=== PATIENT | male | born 1950 | race Caucasian/White ===

== ENCOUNTER → 2018-01-20 | Outpatient (CLI) | payer OTHER ==
[~2018-01-20] MED LIST: ABILIFY20 MG PO; ASPIR-LOW81 MG PO; ATORVASTATIN CA40 MG PO; CIPROFLOXACIN500 M1 PO; DEPAKOTE ER500 MG PO; FLOMAX0.4 MG PO; LISINOPRIL5 MG PO; LOPRESSOR25 PO; PEPCID20 MG PO; TRAMADOL 50 MG50 MG PO; ZOFRAN ODT4 MG PO
== END ==
LOC: NUC 07:18
DX: I25.10 Atherosclerotic heart disease of native coronary artery without angina pectoris (principal); I10 Essential (primary) hypertension; I21.9 Acute myocardial infarction, unspecified

== ENCOUNTER → 2019-02-09 | Outpatient (CLI) | payer OTHER ==
--- NOTE | 2019-02-09 10:37 | 2DMMODE ---
[facility] [place] [address] 2 D/M-MODE ECHOCARDIOGRAM Name: SIERRA CAMPOS Room #: REG [facility]#: [id number] ������������� Admission: 02/09/19 ������������� Attend Phys: Mark Magaña MD Discharge: ��� ������������� ��� Date of : 46 Date of Service: 02/09/19 [facility] �� Report #: [id number] �������� ��������������������������������������������[id number] THIS REPORT FOR: //name// APPROVED REPORT Study performed: 02/09/2019 09:13:39 EXAM: Comprehensive 2D, Doppler, and color-flow Echocardiogram Patient Location: Out-Patient Status: routine BSA: 1.73 HR: 60 bpm Rhythm: NSR Other Information Study Quality: Adequate Indications CAD Hx: SC, stent, HTN, HLP. 2D Dimensions RVDd: 40.25 mm IVSd: 8.10 (7-11mm) LVOT Diam: 20.02 (18-24mm) LVDd: 48.12 mm PWd: 8.25 (7-11mm) Ascending Ao: 31.71 (22-36mm) LVDs: 30.29 (25-40mm) Aortic Root: 32.12 mm Volumes Left Atrial Volume (Systole) Single Plane 4CH: 46.57 mL Single Plane 2CH: 51.12 mL LA ESV Index: 31.00 mL/m2 Aortic Valve AoV Peak Hank.: 1.57 m/s AO Peak Gr.: 9.87 mmHg LVOT Max P.31 mmHg LVOT Max V: 1.26 m/s YASIR Vmax: 2.52 cm2 Mitral Valve E/A Ratio: 1.4 MV Decel. Time: 245.80 ms [facility] [address] [place] [address] 2 D/M-MODE ECHOCARDIOGRAM Name: SIERRA CAMPOS Room #: REG [facility]#: [id number] ������������� Admission: 02/09/19 ������������� Attend Phys: Mark Magaña MD Discharge: ��� ������������� ��� Date of : 46 Date of Service: 02/09/19 1037 �� Report #: [id number] �������� ��������������������������������������������[id number] MV E Max Hank.: 1.04 m/s MV A Hank.: 0.77 m/s MV PHT: 71.28 ms IVRT: 106.11 ms Pulmonary Valve PV Peak Hank.: 0.81 m/s PV Peak Gr.: 2.62 mmHg Pulmonary Vein P Vein S: 0.52 m/s P Vein A: 0.27 m/s P Vein D: 0.38 m/s P Vein A Dur.: 115.3 msec P Vein S/D Ratio: 1.37 Tricuspid Valve TR Peak Hank.: 2.43 m/s RAP Estimate: 5.00 mmHg TR Peak Gr.: 23.71 mmHg PA Pressure: 29.00 mmHg Left Ventricle The left ventricle is normal size. There is normal LV segmental wall motion. There is normal left ventricular wall thickness. The left ventricular systolic function is normal. LVEF is 55-60%. Right Ventricle The right ventricle is normal size. The right ventricular systolic function is normal. Atria The left atrium size is normal. The right atrium size is normal. Aortic Valve Aortic valve is trileaflet, mildly calcified. No aortic regurgitation is present. There is no aortic valvular stenosis. Mitral Valve The mitral valve is normal in structure. Mild to moderate mitral regurgitation. Tricuspid Valve The tricuspid valve is normal in structure. Mild tricuspid regurgitation. Estimated PAP is 30mmHg. Pulmonic Valve The pulmonary valve is normal in structure. Trace pulmonic regurgitation. [facility] [address] [place] [address] 2 D/M-MODE ECHOCARDIOGRAM Name: SIERRA CAMPOS [facility] [id number] ������������� Admission: 02/09/19 ������������� Attend Phys: Mark Magaña MD Discharge: ��� ������������� ��� Date of : 46 Date of Service: 02/09/19 1037 �� Report #: [id number] �������� ��������������������������������������������[id number] [employer] The aortic root is normal in size. The ascending aorta is normal in size. IVC is normal in size and collapses >50% with inspiration. Pericardium There is no pericardial effusion. <Conclusion> The left ventricle is normal size. There is normal left ventricular wall thickness. The left ventricular systolic function is normal. The right ventricle is normal size. The left atrium size is normal. Aortic valve is trileaflet, mildly calcified. Mild to moderate mitral regurgitation. Mild tricuspid regurgitation. Estimated PAP is 30mmHg. ��������������������������������������������� <ELECTRONICALLY SIGNED> ���������������������������������������� By: Mark Magaña MD ��������������������������������������������� 02/09/19 1037 1037 1037 Mark Magaña MD /INF
== END ==
LOC: CV 09:01
DX: I08.3 Combined rheumatic disorders of mitral, aortic and tricuspid valves (principal); I25.10 Atherosclerotic heart disease of native coronary artery without angina pectoris; I10 Essential (primary) hypertension; E78.5 Hyperlipidemia, unspecified; I25.2 Old myocardial infarction

== ENCOUNTER 2019-02-16 11:52 | Emergency (ER) | payer OTHER ==
[~2019-02-16] VITALS: Ht 167.6 cm; Wt 65.8 kg
[2019-02-16] MEDS ORDERED: AUGMENTIN 875-1 EACH PO (14:29)
[2019-02-16 15:54] VITALS: BP 144/84
== END 2019-02-16 15:20 | disposition home or self-care (01) ==
LOC: ER 11:52
DX: S01.81XA Laceration without foreign body of other part of head, initial encounter (principal); W54.0XXA Bitten by dog, initial encounter; Y93.89 Activity, other specified; Y92.89 Other specified places as the place of occurrence of the external cause; Y99.8 Other external cause status

== ENCOUNTER → 2020-04-13 | Outpatient (CLI) | payer OTHER ==
[~2020-04-13] MED LIST changes: +AUGMENTIN 875-1 EACH PO
== END ==
LOC: SJCVCIMAG 07:37
PROVIDERS: ATTEND Internal Medicine Cardiovascular Disease
DX: I25.812 Atherosclerosis of bypass graft of coronary artery of transplanted heart without angina pectoris (principal); I10 Essential (primary) hypertension; E78.2 Mixed hyperlipidemia; E78.5 Hyperlipidemia, unspecified; I25.10 Atherosclerotic heart disease of native coronary artery without angina pectoris; I25.2 Old myocardial infarction

== ENCOUNTER → 2020-11-15 | Outpatient (CLI) | payer OTHER | LOC: SJCVC 14:38 | PROVIDERS: ATTEND Internal Medicine Cardiovascular Disease | DX: R94.31 Abnormal electrocardiogram [ECG] [EKG] (principal); I25.812 Atherosclerosis of bypass graft of coronary artery of transplanted heart without angina pectoris; E78.00 Pure hypercholesterolemia, unspecified; I10 Essential (primary) hypertension; R60.9 Edema, unspecified; Z95.5 Presence of coronary angioplasty implant and graft ==

== ENCOUNTER 2020-12-02 08:07 | Inpatient (IN) | payer OTHER ==
[~2020-12-02] VITALS: Ht 162.6 cm; Wt 63.0 kg
[2020-12-02 08:17] VITALS: BP 114/71
--- NOTE | 2020-12-02 08:51 | EKG ---
[address] [place] [address] ELECTROCARDIOGRAM REPORT Name: SIERRA CAMPOS Room #: PRE [facility]..#: [id number] Admission: Attend Phys: Discharge: Date of : 46 Report #: [id number] [facility] ED Test Date: 2020-12-02 Test Time: 08:44:01 Pat Name: SIERRA CAMPOS Department: Room: Gender: M [employer]: kf : 1950 Requested By: Oli Johnson Order Number: [id number] MD: Floyd Connelly Measurements Intervals [place] Rate: 64 P: 69 [place]: 134 QRS: 65 QRSD: 86 T: 39 QT: 416 QTc: 430 Interpretive Statements Sinus rhythm Minimal ST depression, inferior leads Compared to ECG 02/14/2015 11:29:55 ST (T wave) deviation now present Sinus bradycardia no longer present Electronically Signed On 12-02-2020 8:51:16 [employer] by Floyd Connelly [email or web address] <ELECTRONICALLY SIGNED> By: Floyd Connelly MD, [facility] 12/02/20 0851 0844 0844 Floyd Connelly MD, FACC /EPI
[2020-12-02 09:23] LABS: BASOPHILS 0.1 % (0.0-2.0); EOSINOPHILS 1.2 % (0.0-3.0); HEMATOCRIT 27.3 % (42.0-52.0); HEMOGLOBIN 8.5 gm/dL (14.0-18.0); LYMPHOCYTES 6.7 % (24.0-44.0); MCH 27.3 pg (26.0-34.0); MCHC 31.2 g/dL (28.0-37.0); MCV 87.3 fL (80.0-100.0); MONOCYTES 19.2 % (1.0-8.0); PLATELET COUNT 154 thou/uL (150-400); POLYS 72.8 % (36.0-66.0); RBC 3.13 mil/uL (4.50-6.00); RDW 14.5 % (10.5-14.5); WBC 9.6 thou/uL (4.0-11.0)
[2020-12-02 09:29] LABS: ANION GAP 6 mmol/L (7-16); BUN 11 mg/dL (7-18); CALCIUM 8.6 mg/dL (8.5-10.1); CHLORIDE 105 mmol/L (98-107); CO2 26 mmol/L (21-32); CREATININE 0.9 mg/dL (0.7-1.3); GLUCOSE 87 mg/dL (74-106); POTASSIUM 3.9 mmol/L (3.5-5.1); SODIUM 137 mmol/L (136-145)
[2020-12-02 09:39] LABS: ALBUMIN 2.1 g/dL (3.4-5.0); MAGNESIUM 2.1 mg/dL (1.8-2.4); SGOT 20 U/L (15-37); SGPT 10 U/L (30-65); TOTAL BILIRUBIN 0.1 mg/dL (0.2-1.0); TOTAL PROTEIN 5.7 g/dL (6.4-8.2); TROPONIN-I <0.06 ng/mL (<0.06)
[2020-12-02 15:08] VITALS: BP 118/67
[2020-12-02 15:35] VITALS: BP 104/48
[2020-12-02 16:01] VITALS: BP 112/60
--- NOTE | 2020-12-02 16:58 | NUR ---
PATIENT ARRIVED TO AT APPROX 1600. HX AND EDUCATION DOCUMENTED. PATIENT ON CLR LIQUID DIET; FOR COLONOSCOPY TOMMOROW. WILL START DRINKING BOWEL PREP AFTER DINNER. A&OX4 AND DENIES PAIN. RN WILL DO SYSTEMS INITIAL ASSESSMENT. WILL CONTINUE TO MONITOR
[2020-12-02 20:16] VITALS: BP 122/80
--- NOTE | 2020-12-03 03:34 | NUR ---
ASSUMED CARE OF PT AT SHIFT CHANGE. PT IS AOX4 BUT IS SLOW TO RESPOND. PT IS STEADY ON HIS FEET BUT FALL PRECAUTION IN PLACE FOR SAFETY. PT DENIES PAIN, NAUSEA OR SOA. PT WAS ABLE TO COMPLETE BOWEL PREP AND HAD SEVERAL CLEAR BM. ASSESSMENT CHARTED. SKIN TEAR NOTED ON LEFT HIP AND PICTURE WAS TAKEN. PT PLACED NPO AT MIDNIGHT FOR PROCEDURE IN THE AM. PT RAN SR ON TELE. PT HAS TREMORS. PT WAS ABLE TO GET COMFORTABLE AND SLEEP PART OF THE SHIFT. VSS AND NO S/S OF ACUTE DISTRESS. WILL CONTINUE TO MONITOR FOR CHANGES.
[2020-12-03 05:40] LABS: HEMOGLOBIN 7.8 gm/dL (14.0-18.0); MCH 27.9 pg (26.0-34.0); MCHC 32.3 g/dL (28.0-37.0); MCV 86.3 fL (80.0-100.0); RBC 2.78 mil/uL (4.50-6.00); RDW 14.4 % (10.5-14.5); WBC 7.3 thou/uL (4.0-11.0)
[2020-12-03 05:58] VITALS: BP 89/52
[2020-12-03 06:26] VITALS: BP 108/66
[2020-12-03 07:25] VITALS: BP 99/54
[2020-12-03 07:28] VITALS: BP 91/41
--- NOTE | 2020-12-03 12:43 | NUR ---
ASSUMED PT CARE THIS AM. PT HAD A [id number] AND EGD THIS AM. REPORTING SOME WEAKNESS WITH AMBULATION. TREMORS NOTED. PT COOPERATIVE WITH STAFF. PT ON TELE. FALL PRECAUTIONS IN PLACE. ON A CLEAR LIQUID DIET. IV PATENT, FLUIDS INFUSING. CALLS APPROPRIATELY WHEN NEEDED.
[2020-12-03 15:50] VITALS: BP 113/77
[2020-12-03] MEDS ORDERED: ARIPIPRAZOLE10 MG PO ×2 (18:53)
[2020-12-03] MEDS ORDERED: DIVALPROEX SOD500 M1 PO ×2 (18:54)
[2020-12-03 20:29] LABS: URINE BILIRUBIN NEGATIVE (Negative); URINE BLOOD NEGATIVE (Negative); URINE CLARITY CLEAR; URINE COLOR YELLOW; URINE GLUCOSE-RANDOM* NEGATIVE (Negative); URINE KETONES TRACE (Negative); URINE LEUKOCYTES-REFLEX NEGATIVE (Negative); URINE NITRITE-REFLEX NEGATIVE (Negative); URINE PROTEIN (DIPSTICK) NEGATIVE (Negative); URINE UROBILINOGEN 0.2 E.U./dl (0.2-1.0)
[2020-12-03 21:18] VITALS: BP 132/66
[2020-12-04 04:31] LABS: HEMATOCRIT 24.7 % (42.0-52.0); HEMOGLOBIN 7.8 gm/dL (14.0-18.0); MCH 27.3 pg (26.0-34.0); MCHC 31.7 g/dL (28.0-37.0); MCV 86.2 fL (80.0-100.0); RBC 2.86 mil/uL (4.50-6.00); RDW 14.4 % (10.5-14.5); WBC 7.5 thou/uL (4.0-11.0)
--- NOTE | 2020-12-04 06:00 | NUR ---
Pt. rested quietly during the night when checked on during frequent rounds. He offers no c/o pain or discomfort. Bed alarm is on.
[2020-12-04 07:20] VITALS: BP 99/49
[2020-12-04] MEDS ORDERED: CARAFATE1 GM/10 ML PO ×2 (09:47)
[2020-12-04] MEDS ORDERED: PROTONIX40 M4 PO ×2 (09:47)
[2020-12-04 10:17] LABS: % SATURATION 7 % (20-39); IRON 13 ug/dL (65-175); TIBC 197 ug/dL (250-450)
--- NOTE | 2020-12-04 11:12 | NUR ---
ASSUMED PT CARE THIS AM. PT VSS, A&OX4. PT HAS NO COMPLAINTS OF PAIN. ON TELE, DOCUMENTED RHYTHM. AMBULATORY TO THE BATHROOM WITH MINIMAL ASSIST. TOLERATING DIET WELL. TOOK MEDS THIS AM WITHOUT COMPLAINT. IV PATENT, FLUIDS INFUSING. PICTURE TAKEN OF SCRATCH ON LEFT HIP, MEASURING 1 CM BY 3 CM. PT REPORTS SCRATCHING HIS SKIN WHEN HE PULLED HIS PANTS DOWN. CALLS APPROPRIATELY WHEN NEEDED.
[2020-12-04 11:25] VITALS: BP 99/49
--- NOTE | 2020-12-07 16:06 | PATH ---
[facility] [place] [address] PATHOLOGY RPT PROCEDURE Name: SIERRA CAMPOS Room #: 455-P DIS IN M.R.#: [id number] Admission: 12/02/20 Date of : 46 Discharge: 12/04/20 Report #: [id number] Path Case #: [id number] [facility] Accession Number: [id number] . 01 Material submitted: . PART A: esophagus - ESOPHAGEAL ULCER PART B: colon - BX OF POLYP ASCENDING COLON X 2. Modifiers: ascending . 02 Diagnosis: A. Gastroesophageal mucosa, esophageal ulcer, endoscopic biopsy: - Marked acute esophagitis associated with ulceration and granulation tissue. - Gastric fundic-type mucosa with reactive atypia and inflammation. - Negative for dysplasia. . B. Polyp x2, ascending colon, endoscopic biopsy: - Tubular adenoma x1; negative for high-grade dysplasia. - Hyperplastic polyp x1; negative for dysplasia. . (IUV:sisi; 12/06/2020) MBR 12/06/2020 1319 Local . 02 Comment: GMS fungal special stain, along with CMV* and HSV-1* immunohistochemical stains is ordered on block A1 and the results of these will be reported in an addendum to follow. (IUV:supervisor multifocal lens; 12/06/2020) . *This test was developed and its performance characteristics determined by [facility]. It has not been cleared or approved by the U.S. Food and Drug Administration. The FDA has determined that such clearance or approval is not necessary. This test is used for clinical purposes. It should not be regarded as investigational or for research. This laboratory is certified under the Clinical Laboratory Improvement Amendments of 1988 (CLIA) as qualified to perform high complexity clinical laboratory testing. . 02 Addendum: . Addendum is issued subsequent to reviewing properly-controlled stains performed on Block A1 . Special stain GMS - No definite fungal elements identified. . *CMV immunohistochemical stain - No definite CMV inclusion identified. . *HSV1 immunohistochemical stain - No definite herpes inclusions identified. . [address] [address] PATHOLOGY RPT PROCEDURE Name: BETHSIERRA ARANDASS Room #: 455-P DIS IN M.R.#: [id number] Admission: 12/02/20 Date of : 46 Discharge: 12/04/20 Report #: [id number] Path Case #: [id number] The originally rendered diagnosis remains unchanged. (IUV:mike; 12/07/2020) . . . *This test was developed and its performance characteristics determined by [facility]. It has not been cleared or approved by the U.S. Food and Drug Administration. The FDA has determined that such clearance or approval is not necessary. This test is used for clinical purposes. It should not be regarded as investigational or for research. This laboratory is certified under the Clinical Laboratory Improvement Amendments of 1988 (CLIA) as qualified to perform high complexity clinical laboratory testing. . . Professional services performed by [facility] at [facility], [address], [place] [address]. Technical services performed by [facility] [facility] at [address] [place] [address], [address], [place] [address]. QMS/12/07/2020 Addendum Electronically Signed by Mine Escobar MD, Pathologist . 02 Electronically signed: . Mine Escobar MD, Pathologist NPI- [id number] . 01 Gross description: . A. The specimen is received in formalin, labeled "Sierra Campos BX of esophageal ulcer" and consists of multiple fragments of pink-vazquez tissue measuring 0.8 x 0.8 x 0.3 cm in aggregate which are entirely submitted in A1. . B. The specimen is received in formalin, labeled "Sierra Campos BX of polyp ascending colon x2" and consists of 2 fragments of pink tissue measuring 0.2 x 0.1 cm and 0.4 x 0.2 cm which are entirely submitted in B1. (SDY; 12/05/2020) SYU/SYU 12/05/2020 1403 Local . 02 Pathologist provided ICD-10: K20.90, K22.10, D12.2, K63.5 . 02 CPT . 862718, 531860, 761435, [id number], [id number] Specimen Comment: A courtesy copy of this report has been sent to [phone] Specimen Comment: [id number] Specimen Comment: Report sent to / DR MELCHOR Performed at: 01 [facility] [address] [place] [address] PATHOLOGY RPT PROCEDURE Name: SIERRA CAMPOS Room #: 455-P DIS IN M.R.#: [id number] Admission: 12/02/20 Date of : 46 Discharge: 12/04/20 Report #: [id number] Path Case #: [id number] [address] [facility] [address], [place], [place] [id number] MD Javier Lora MD Phone: [phone] Performed at: [address] [id number] MD Mine Escobar MD Phone: [phone]
[2020-12-19] MEDS ORDERED: LIPITOR80 MG PO (11:01)
[2020-12-19] MEDS ORDERED: FLOMAX0.4 MG PO (11:02)
[2020-12-19] MEDS ORDERED: TOPROL XL50 MG PO (11:02)
[2020-12-19] MEDS ORDERED: LISINOPRIL10 MG PO (11:02)
[2020-12-19] MEDS ORDERED: IRON325 M1 PO (11:03)
[2020-12-19] MEDS ORDERED: GUMMY1 EACH PO (11:04)
[2020-12-19] MEDS ORDERED: VENOFER200 MG/10 IVPB (11:05)
== END 2020-12-04 11:53 | disposition home or self-care (01) | DRG 380 ==
LOC: ER 08:07 → EROBS 11:31 → 4W 16:00
PROVIDERS: Emergency Medicine; ADMIT Family Medicine; ATTEND Family Medicine
PROC: 0DBK8ZX Excision of Ascending Colon, Via Natural or Artificial Opening Endoscopic, Diagnostic (ICD-10-PCS; 2020-12-02)
PROC: 0DB38ZX Excision of Lower Esophagus, Via Natural or Artificial Opening Endoscopic, Diagnostic (ICD-10-PCS; principal; 2020-12-03)
DX: K22.11 Ulcer of esophagus with bleeding (principal); E43 Unspecified severe protein-calorie malnutrition; D64.9 Anemia, unspecified; I10 Essential (primary) hypertension; K21.9 Gastro-esophageal reflux disease without esophagitis; I25.10 Atherosclerotic heart disease of native coronary artery without angina pectoris; E78.5 Hyperlipidemia, unspecified; K92.2 Gastrointestinal hemorrhage, unspecified; K63.5 Polyp of colon; T50.Z95A Adverse effect of other vaccines and biological substances, initial encounter; F20.9 Schizophrenia, unspecified; Z20.822 Contact with and (suspected) exposure to COVID-19; Z79.82 Long term (current) use of aspirin; Z79.899 Other long term (current) drug therapy; Z90.49 Acquired absence of other specified parts of digestive tract; Z95.5 Presence of coronary angioplasty implant and graft; Y92.89 Other specified places as the place of occurrence of the external cause
CPT/HCPCS: 10045; 62110; 62900; 70005

== ENCOUNTER → 2020-12-19 | Outpatient (CLI) | payer OTHER ==
[~2020-12-19] MED LIST changes: +ARIPIPRAZOLE10 MG PO; +CARAFATE1 GM/10 ML PO; +DIVALPROEX SOD500 M1 PO; +GUMMY1 EACH PO; +IRON325 M1 PO; +LIPITOR80 MG PO; +LISINOPRIL10 MG PO; +PROTONIX40 M4 PO; +TOPROL XL50 MG PO; +VENOFER200 MG/10 IVPB
[2020-12-19 10:30] VITALS: BP 150/66
[2020-12-19 11:11] VITALS: BP 150/66
[2020-12-19 11:27] VITALS: BP 108/51
[2020-12-19 11:40] VITALS: BP 114/54
== END ==
LOC: OPONC 10:00
PROVIDERS: ATTEND Family Medicine
DX: D50.0 Iron deficiency anemia secondary to blood loss (chronic) (principal)
CPT/HCPCS: 95000

== ENCOUNTER → 2020-12-21 | Outpatient (CLI) | payer OTHER ==
[2020-12-21 10:05] VITALS: BP 126/74
--- NOTE | 2020-12-21 10:57 | NUR ---
HERE FOR 2ND OF 5 VENOFER INFUSIONS. STATES HE ENDED UP FEELING FINE, NO COMPLAINTS AFTER DISMISSAL FROM OUR CLINIC ON SATURDAY. TOLERATED TODAY'S INFUSION OVER 30 MIN WITH NO S/S REACTION. WATCHED FOR 15 MIN POST THEN DISMISSED IN STABLE CONDITION. SCHEDULED TO RETURN AGAIN NEXT WEEK ON SATURDAY (SKIPPING SAT--HAVING SOME IMAGING DONE AT [facility] TO EVALUATE THE PREVIOUS ESOPHAGEAL BLEED AREA).
[2020-12-21 11:45] VITALS: BP 127/70
== END ==
LOC: OPONC 10:16
PROVIDERS: ATTEND Family Medicine
DX: D50.0 Iron deficiency anemia secondary to blood loss (chronic) (principal)
CPT/HCPCS: 95000

== ENCOUNTER → 2020-12-26 | Outpatient (CLI) | payer OTHER ==
[2020-12-26 10:25] VITALS: BP 136/49
[2020-12-26 10:39] LABS: ABSOLUTE NEUTROPHILS 3.3 thou/uL (1.4-8.2); BASOPHILS 0.2 % (0.0-2.0); EOSINOPHILS 3.3 % (0.0-3.0); HEMOGLOBIN 8.6 gm/dL (14.0-18.0); LYMPHOCYTES 14.1 % (24.0-44.0); MCH 26.9 pg (26.0-34.0); MCHC 30.9 g/dL (28.0-37.0); MONOCYTES 12.2 % (1.0-8.0); PLATELET COUNT 125 thou/uL (150-400); POLYS 70.2 % (36.0-66.0); RBC 3.22 mil/uL (4.50-6.00); WBC 4.7 thou/uL (4.0-11.0)
[2020-12-26 10:50] LABS: CREATININE 0.9 mg/dL (0.7-1.3); POTASSIUM 3.7 mmol/L (3.5-5.1)
[2020-12-26 11:05] VITALS: BP 143/48
--- NOTE | 2020-12-26 11:18 | NUR ---
HERE FOR 3RD OF 5 VENOFER INFUSIONS. REPORTS TOLERATING EACH WELL, NO CONCERNS NOTED. PT DOES HAVE SOME INCREASING BILAT LE EDEMA, KNEES TO ANKLES, R>L. WENT TO SEE DR. MELCHOR THIS MORNING REGARDING THIS. ORDERS RECEIVED TO HAVE LABS DRAWN WITH HIS VISIT HERE TODAY. CBC WITH DIFF AND BMP DRAWN, RESULTS FAXED TO DR. MELCHOR. PT STATES DR. MELCHOR ALSO E-SCRIBED A WATER PILL AND SOME DOXYCYCLINE TO HIS PHARMACY. PT TOLERATED TODAY'S INFUSION WITHOUT INCIDENT, VSS, NO COMPLAINTS UPON COMPLETION. DISMISSED IN STABLE CONDITION. SCHEDULED TO RETURN AGAIN ON SAT.
== END ==
LOC: OPONC 09:52
PROVIDERS: ATTEND Family Medicine
DX: D50.0 Iron deficiency anemia secondary to blood loss (chronic) (principal)
CPT/HCPCS: 95000

== ENCOUNTER → 2020-12-28 | Outpatient (CLI) | payer OTHER ==
[2020-12-28 10:19] VITALS: BP 96/59
[2020-12-28 10:45] VITALS: BP 115/64
--- NOTE | 2020-12-28 11:05 | NUR ---
COMPLETED HIS 4TH DAY/DOSE OF VENOFER TODAY. STATES HAD STARTED ON THE WATER PILL AND DOXYCYCLINE ON SATURDAY AFTER SEEIING DR. MELCHOR AND HAS ALREADY LOST 5#. LEGS LESS EDEMATOUS. BP MUCH LOWER THIS MORNING, 96/79 TO START, 115/64 POST INFUSION. PT DENIES ANY DIZZINESS. STATES TOLERATING INFUSIONS WELL. DENIES N/V/DIARRHEA. DID AWAKEN WITH TERRIBLE NECK PAIN THIS MORNING--NOT SURE WHY. NO OTHER BODY ACHES/PAINS. SAW DR. MELCHOR AGAIN TODAY AND WAS GIVEN A SHOT OF TORADOL AND HAD A LIDODERM PATCH APPLIED. INSTRUCTED PT TO NOTIFY DR. MELCHOR IF HE DOES BEGIN TO DEVELOP OTHER BODY PAINS. DISMISSED IN STABLE CONDITION. SCHEDULED TO RETURN FOR HIS FINAL INFUSION ON SATURDAY.
== END ==
LOC: OPONC 10:33
PROVIDERS: ATTEND Family Medicine
DX: D50.0 Iron deficiency anemia secondary to blood loss (chronic) (principal)
CPT/HCPCS: 95000

== ENCOUNTER → 2020-12-30 | Outpatient (CLI) | payer OTHER ==
[2020-12-30 11:15] VITALS: BP 147/70
[2020-12-30 12:07] VITALS: BP 129/66
--- NOTE | 2020-12-30 17:23 | NUR ---
IN FOR LAST OF 5 VENOFER INFUSIONS FOR ANEMIA. CAREGIVER EVER WITH PATIENT AND STATED PATIENT HAS HAD ALOT OF EDEMA SINCE STARTING THE INFUSIONS AND IS ON A DIURETIC. PATIENT HAS LOST 8 LBS OF FLUID IN THE LAST 2 WEEKS. IV PLACED IN LEFT ARM AND INFUSED VENOFER OVER 30 MINUTES. TOLERATED WELL. POST BP GOOD. REMOVED IV AND DISMISSED HOME IN STABLE CONDITION.
== END ==
LOC: OPONC 10:55
PROVIDERS: ATTEND Family Medicine
DX: D50.0 Iron deficiency anemia secondary to blood loss (chronic) (principal)
CPT/HCPCS: 95000

== ENCOUNTER → 2021-12-04 | Outpatient (CLI) | payer OTHER | LOC: SJCVC 10:57 | PROVIDERS: ATTEND Internal Medicine Cardiovascular Disease | DX: I25.10 Atherosclerotic heart disease of native coronary artery without angina pectoris (principal); I10 Essential (primary) hypertension; R94.31 Abnormal electrocardiogram [ECG] [EKG]; E78.00 Pure hypercholesterolemia, unspecified; R60.9 Edema, unspecified; R07.9 Chest pain, unspecified; R56.9 Unspecified convulsions; Z79.899 Other long term (current) drug therapy; Z95.5 Presence of coronary angioplasty implant and graft; Z82.49 Family history of ischemic heart disease and other diseases of the circulatory system ==